=== PATIENT | male | born 1995 | race African-American/Black ===

== ENCOUNTER 2016-08-10 17:42 | Emergency (ER) | payer OTHER ==
[~2016-08-10] VITALS: Ht 193 cm; Wt 120.8 kg
[2016-08-10 17:52] VITALS: TEMP 36.7; Ht 193 cm; Wt 120.8 kg
[2016-08-10] MEDS ORDERED: XYLOCAINE 1%/SOD BICARB 20 ML VIAL INFIL ONE (18:15)
[2016-08-10 19:14] VITALS: BP 165/95; PULSE 60; O2SAT 96
--- NOTE | 2016-08-10 23:55 | EMERGENCY ROOM VISIT NOTE ---
ED Visit Note First contact with patient: 17:56 Chief Complaint: Left thumb laceration. History of Present Illness: Mr. Keller is a 20-year-old male who ambulates into the ED complaining of a left thumb laceration. Patient reports he was at work making sandwiches less than an hour ago when he accidentally cut his left thumb cutting a roll. He does report he control bleeding prior to arrival at the hospital but did not wash his wound. Associated with his wound he reports he has a stinging sensation in the area of his laceration. He rates his discomfort 6/10. The pain is nonradiating. Pain worsens with palpation. He has not identified any alleviating factors related to the pain. He has not taken a medication for pain prior to arrival at the hospital. He denies any associated symptoms including other finger/hand pain, thumb weakness/numbness/tingling. Review of Systems: As noted above in history of present illness. Past Medical History: Patient denies. Current Medications: Patient denies. Allergies to Medications: Patient denies. Social History: Patient is currently employed; he feels safe in his home environment; he denies tobacco use. Tetanus Immunization Status: Patient reports up-to-date. Physical Examination: Vital Signs: Date Time Temp Pulse Resp B/P Pulse Ox O2 Delivery O2 Flow Rate FiO2 08/10/16 19:14 60 18 165/95 96 08/10/16 17:52 36.7 58 18 153/99 98 Room Air GENERAL: 20-year-old male in mild distress due to pain, nontoxic-appearing, afebrile and hemodynamically stable. NEUROLOGICAL: Awake, alert and oriented to person, place and time. Answering questions appropriately and following commands. SKIN: Warm, dry and pink. Left Thumb: Over the medial aspect of the distal phalanx patient has a 3.2 cm full-thickness laceration. The laceration is partially involving the medial border of the nail (3 mm) and wraps around to the anterior aspect of the finger. There is minimal bleeding at the time of the evaluation. LEFT THUMB: Soft tissue injury as noted above. No gross bony deformity. No tenderness in the MCP and interphalangeal joints. Full range of motion in flexion and extension against resistance of the MCP and interphalangeal joints. Throughout the thumb the skin was warm and pink and capillary refill is brisk. He was able to distinguish light sensations through all dermatomes but does report there is a mild tingling sensation over the distal aspect of the distal flange. ED Course: Patient is assessed as noted above. Wound Repair: Complexity: Basic Verbal consent was obtained after the risks and benefits were explained. The skin was prepped with betadine and a sterile field set. Wound edges of the wound was anesthetized with 2.1 ml buffered 1% lidocaine. The wound was explored for foreign bodies and none found. Copious irrigation was performed using sterile saline. With direct pressure the bleeding subsided. Debridement was not performed. The wound edges were approximated using 5-0 Ethilon with 6 simple interrupted sutures. Hemostasis and excellent approximation was achieved. Antibacterial ointment and a sterile dressing applied. No complications and the patient tolerated the procedure well. Patient was educated about tonight's findings and instructed on his treatment plan; he verbalizes understanding and agreement with this plan. Clinical Impression: Laceration of the left thumb. Disposition: Patient discharged home in stable condition. Plan: Comfort measures, wound care, and signs of infection were discussed with the patient. Patient was encouraged to follow-up with Workmen's Compensation or return to the ED for signs of infection and/or suture removal in 10-12 days.
== END 2016-08-10 19:10 | disposition home or self-care (01) ==
LOC: C.EDB 17:45 → C.EDD 19:10
DX: S61.012A Laceration without foreign body of left thumb without damage to nail, initial encounter (principal); Y93.G1 Activity, food preparation and clean up; W26.0XXA Contact with knife, initial encounter; Y99.0 Civilian activity done for income or pay; Y92.89 Other specified places as the place of occurrence of the external cause

== ENCOUNTER 2016-08-25 16:58 | Emergency (ER) | payer OTHER ==
[~2016-08-25] VITALS: Ht 193 cm; Wt 120.4 kg
[2016-08-25 17:05] VITALS: BP 140/65; PULSE 67; TEMP 36.9; O2SAT 98; Ht 193 cm; Wt 120.4 kg
[2016-08-25] MEDS ORDERED: IBUP-1050 PO (17:11)
--- NOTE | 2016-08-25 17:25 | EMERGENCY ROOM VISIT NOTE ---
ED Visit Note First contact with patient: 17:11 CHIEF COMPLAINT: Suture removal left thumb HISTORY of present illness: This patient returns to the ED today for removal of sutures that were placed 14 days ago in the left thumb. There has been no swelling, redness, or drainage from the wound. The patient feels like the laceration is healing well. REVIEW OF SYSTEMS: 6 system review was performed and was negative unless stated otherwise in history of present illness. PMH: The patient is healthy; there is no significant medical or surgical history. SOCIAL HISTORY: Patient lives at home. PHYSICAL EXAM: Vital Signs: Were reviewed Reviewed Nurse's notes. GEN.: 20-year -old male appears in no acute distress. MENTAL Status: Alert and oriented 3. LEFT THUMB: There is a sutured wound on the distal phalanx with no signs of infection. There is no erythema, swelling, or tenderness. EMERGENCY DEPARTMENT COURSE: The sutures were removed without any difficulty and there was no separation of the wound edges. DIAGNOSIS: Healing left thumb laceration and suture removal DISCHARGE INSTRUCTIONS AND TREATMENT: Wash any remaining crusts off of the wound today and resume your normal activities. Current/Historical Medications Scheduled PRN Ibuprofen (Advil), 600 MG PO DIRECTED PRN for Pain Allergies Coded Allergies: No Known Allergies (Unverified , 08/25/16) Vital Signs Date Time Temp Pulse Resp B/P Pulse Ox O2 Delivery O2 Flow Rate FiO2 08/25/16 17:05 36.9 67 18 140/65 98 Room Air Departure Information Referrals No Doctor, Assigned (PCP) Patient Instructions [facility]
== END 2016-08-25 17:30 | disposition home or self-care (01) ==
LOC: C.EDB 16:58 → C.EDD 17:30
DX: S61.012D Laceration without foreign body of left thumb without damage to nail, subsequent encounter (principal); X58.XXXD Exposure to other specified factors, subsequent encounter